=== PATIENT | male | born 1980 | race Caucasian/White ===

== ENCOUNTER 2016-12-17 12:25 | Emergency (ER) | payer OTHER ==
[2016-12-17] MEDS ORDERED: IBUPROFEN 200 MG TAB PO ONE ×2 (12:39→18:07)
[2016-12-17] MEDS ORDERED: HYDROcodone 5MG/APAP 325MG 1 EA TAB PO ONE ×3 (12:49→21:21)
--- NOTE | 2016-12-17 13:03 | RAD ---
Frontal view pelvis. Two-view left hip. Indication: left hip pain and low grade fever, 2 hours Comparison: None. 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 Inferior aspects of the femoral stems not included in their entirety on the pelvis view. No discrete fracture identified. Pelvic ring is intact. Very subtle lucency about the inferior aspects of the left femoral stem. Loosening is difficult to exclude. Comparison with any prior examinations recommended to document stability. Electronically signed by: Rahul Giles MD 12/17/2016 1:02 PM CDT
[2016-12-17] MEDS ORDERED: ACETAMINOPHEN 325 MG TAB PO ONE (14:25)
--- NOTE | 2016-12-17 14:42 | US ---
EXAM DESCRIPTION: Venous,Lower Extremity LT CLINICAL HISTORY: 36 years,Male,left inguinal pain, fever, distant hip replacement COMPARISON: None TECHNIQUE: Multiple duplex Doppler ultrasound images were performed of the left lower extremity deep veins. FINDINGS: The common femoral vein to the calf vessels demonstrates good compression, augmentation, and no thrombus formations. Surrounding soft tissues unremarkable. IMPRESSION: Unremarkable deep veins of the left lower extremity. Electronically signed by: Alex Bell MD 12/17/2016 2:40 PM CDT
[2016-12-17] MEDS ORDERED: LINEZOLID IV 600 MG in PREMIX BAG 1 BAG IVPB ONE (15:01)
[2016-12-17] MEDS ORDERED: ERTAPENEM 1 GM in SODIUM CHL 0.9% 50ML MIN-BAG+ 50 ML IVPB ONE (15:03)
--- NOTE | 2016-12-17 15:11 | ED.PDOC ---
History of Present Illness - General Chief Complaint: Lower Extremity Injury Stated Complaint: left hip pain Time Seen by Provider: 12/17/16 12:33 Source: patient Exam Limitations: no limitations - History of Present Illness Initial Comments: the patient is a 36-year-old male presenting to the emergency room secondary to fairly abrupt onset pain in the left hip with associated fever and body aches. This started about 2-3 hours prior to arrival. The patient had been having normal activity and no injuries. He was not having any pain when he laid down. The pain started after he had been lying down for a little while. The patient took several ibuprofen before coming up here and his temperature upon arrival was 100.5. After a couple of hours and additional Tylenol his temperature was 102.3. Pain is located over the left hip. See no erythema. I feel no definite swelling. There is mild increased warmth over the area. He does not bear weight well. Both active and passive range of motion causes pain. Occurred: just prior to arrival Pain - Lower Extremity: severe: Left Thigh/Hip Method of Injury: other Improving Factors: immobilization Worsening Factors: movement Allergies/Adverse Reactions: Allergies NO KNOWN ALLERGY Allergy (Verified 12/17/16 13:06) Review of Systems - Review of Systems Constitutional: States: chills, diaphoresis, fever, malaise EENTM: States: no symptoms reported Respiratory: States: no symptoms reported Cardiology: States: no symptoms reported Gastrointestinal/Abdominal: States: no symptoms reported Genitourinary: States: no symptoms reported Musculoskeletal: States: see HPI Skin: States: no symptoms reported Neurological: States: no symptoms reported Endocrine: States: excessive sweating All other Systems: No Change from Baseline Past Medical History (General) - Patient Medical History Hx Seizures: No Hx Stroke: No Hx Hypertension: Yes Hx Diabetes: No Surgical History: appendectomy, other Family Medical History - Family History Mother Family History: No Known Physical Exam - Physical Exam General Appearance: Alert, Ill Appearing Eyes, Ears, Nose, Throat: PERRL/EOMI, normal ENT inspection, TMs normal, other - the patient is obviously flushed with fever Neck: non-tender, full range of motion, supple Cardiovascular/Respiratory: regular rate, rhythm, normal peripheral pulses, normal breath sounds, no respiratory distress Gastrointestinal/Abdominal: non-tender Back: normal inspection, no CVA tenderness, no vertebral tenderness Thigh/Hip: limited ROM, pain, soft tissue tenderness - Limited range of motion, other - see history of present illness Leg: normal inspection, non-tender, no evidence of injury Knee: normal inspection, non-tender, no evidence of injury, normal ROM Ankle: normal inspection, non-tender, no evidence of injury, normal ROM Foot: normal inspection, non-tender, no evidence of injury, normal ROM Neuro/Tendon: normal sensation, normal motor functions, normal tendon functions Mental Status: alert Skin: normal color Comments: Vital Signs - 24 hr 12/17/16 12/17/16 12/17/16 12:34 13:01 14:05 Temperature 100.5 F H 102.3 F H Pulse Rate [ 92 H 85 92 H right brachial] Respiratory 20 20 20 Rate Blood Pressure 116/65 118/62 133/63 [right brachial ] O2 Sat by Pulse 97 96 98 Oximetry 12/17/16 14:50 Temperature Pulse Rate [ right brachial] Respiratory 16 Rate Blood Pressure 145/74 [right brachial ] O2 Sat by Pulse Oximetry Progress - Progress Progress: 12/17/16 15:15 the patient is a 36-year-old male presenting to the emergency room secondary to fairly abrupt onset severe left hip pain while at rest with associated fever. The patient does have a prosthetic joint there. The patient has remained significantly febrile even after Tylenol and Motrin. I discussed the patient with his orthopedist Dr. Amilcar Alvarado at [facility]. The patient will be transferred to the emergency room there for further evaluation. There is significant concern here for the patient trying to become septic. 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 It will be avoided for now. He is receiving a dose of Linezolid and ertapenem. it would ideal if we were able to obtain a reliable aspirate before the antibiotics were required, but this does not appear to be possible at this time. 2 separately times sets of blood cultures have been performed here. The patient will be transferred for specialty care with his orthopedist. Aside from the fever, vitals have remained stable. The patient will be made nothing by mouth. 12/17/16 16:29 due to the anticipated significant delay before the patient can be seen by his orthopedist and aspirated there, it was agreed upon to attempt an aspiration of the hip joint here in hopes of obtaining fluid for culture before antibiotics hit their peak. Risks and benefits were explained. Patient did agree to proceed. Ultrasound was used for marking of the hip joint before the procedure was attempted. Patient was in supine position. 1% lidocaine with epinephrine was used 2 cc for localized anesthetic. A lateral approach was used using a 17 -gauge spinal needle. Needle was inserted 1/2 cm proximal to the anterior third of the greater trochanter and advanced horizontally along the plane of the bed until resistance was met and then the needle was slowly withdrawn and redirected slightly cephalad. This was done 3 times. In spite of this, we were unable to obtain fluid for culture. The patient did tolerate the procedure well. There is no obvious bleeding. No blood was withdrawn into the syringe during the process. The patient appears neurovascularly intact after the process. Sterile prep and draped using Betadine was performed. 12/17/16 18:56 there is a significant delay in transferring of the patient. I'm being told that his insurance is refusing to reimburse for his transfer to [facility] indicating that there are closer facilities to care for him. He has been given prices for ambulance services to transfer him as private pay, but he is unwilling to use his oxygen at this time. He is currently waiting on his spouse to get here from approximately 4 hours away to take him to [facility]. Even though this is less than ideal, I do believe he is better off going back to the orthopedic surgeon that operated on the joint in question in the past. he has been following up with that surgeon since the surgery as well. It is his medical home for that malady. I do believe he has a better chance for a better outcome going this route. The patient's fever is breaking. He has had his doses of antibiotics. His pain is fairly well-controlled at this time. He is remaining nothing by mouth with the exception of ice chips. He has had a liter of IV fluids. 12/17/16 21:19 the patient's sister has arrived to transfer him to [facility] for further evaluation and treatment. IV will be left in place in case they need to make a unscheduled stop at a hospital along the way. the patient's vital signs are reassuring. His fever is breaking. transferring for orthopedic evaluation and intervention with his primary orthopedist. - Results/Orders Results/Orders: 12/17/16 12:54 BLOOD CULTURE Stat 12/17/16 14:46 BLOOD CULTURE Stat 12/17/16 15:01 Linezolid IV [Zyvox IV] 600 mg Premix Bag 1 bag IVPB ONCE 12/17/16 15:03 Ertapenem [INVanz] 1 gm Sodium Chl 0.9% 50Ml Min-Bag+ [NS 50ml MINI-BAG+] 50 ml IVPB ONCE Laboratory Results - last 24 hr 12/17/16 12/17/16 12/17/16 12:54 12:54 12:54 WBC 13.0 H RBC 4.75 Hgb 14.8 Hct 43.9 MCV 92.4 MCH 31.2 H MCHC 33.8 RDW 13.1 Plt Count 210 MPV 8.3 Absolute Neuts (auto) 10.60 H Absolute Lymphs (auto) 1.40 Absolute Monos (auto) 0.70 Absolute Eos (auto) 0.20 Absolute Basos (auto) 0.10 Neutrophils % 81.5 H Lymphocytes % 11.0 L Monocytes % 5.6 Eosinophils % 1.3 Basophils % 0.6 ESR 0 PT 12.0 INR 1.060 PTT (SP) 31.5 D-Dimer, Quantitative 355 H* Sodium Potassium Chloride Carbon Dioxide Anion Gap BUN Creatinine BUN/Creatinine Ratio Random Glucose Serum Osmolality Calcium Total Bilirubin AST ALT Alkaline Phosphatase C-Reactive Protein Serum Total Protein Albumin Globulin Albumin/Globulin Ratio Urine Color Urine Appearance Urine pH Ur Specific [place] Urine Protein Urine Glucose (UA) Urine Ketones Urine Blood Urine Nitrite Urine Bilirubin Urine Urobilinogen Ur Leukocyte Esterase Urine RBC Urine WBC Ur Epithelial Cells Urine Bacteria 12/17/16 12/17/16 12:54 14:02 WBC RBC Hgb Hct MCV MCH MCHC RDW Plt Count MPV Absolute Neuts (auto) Absolute Lymphs (auto) Absolute Monos (auto) Absolute Eos (auto) Absolute Basos (auto) Neutrophils % Lymphocytes % Monocytes % Eosinophils % Basophils % ESR PT INR PTT (SP) D-Dimer, Quantitative Sodium 136 Potassium 4.2 Chloride 101 Carbon Dioxide 28 Anion Gap 11.2 L BUN 14 Creatinine 1.07 BUN/Creatinine Ratio 13.1 Random Glucose 119 H Serum Osmolality 273.6 L Calcium 9.1 Total Bilirubin 0.5 AST 24 ALT 34 Alkaline Phosphatase 78 C-Reactive Protein 1.3 H Serum Total Protein 7.6 Albumin 4.2 Globulin 3.4 Albumin/Globulin Ratio 1.2 Urine Color Yellow Urine Appearance Clear Urine pH 7.0 Ur Specific [place] 1.020 Urine Protein Negative Urine Glucose (UA) Negative Urine Ketones Negative Urine Blood Negative Urine Nitrite Negative Urine Bilirubin Negative Urine Urobilinogen 0.2 Ur Leukocyte Esterase Negative Urine RBC 0 Urine WBC 0 Ur Epithelial Cells 0-1 Urine Bacteria 0 Departure - Departure 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
[2016-12-17] MEDS ORDERED: ERTAPENEM 1 GM VIAL ONE (15:21)
[2016-12-17] MEDS ORDERED: SODIUM CHL 0.9% 50ML MIN-BAG+ 50 ML IVPB ONE (15:22)
[2016-12-17] MEDS ORDERED: POVIDONE IODINE 10 % 15 ML UD TOP ONE (16:12)
[2016-12-17] MEDS ORDERED: LIDOCAINE 1% W/ EPINEPHRINE 20 ML VIAL INJ ONE (16:21)
[2016-12-17] MEDS ORDERED: SODIUM CHLORIDE 0.9% 1000ML 1,000 ML IVS ONE (17:13)
[2016-12-17] MEDS ORDERED: KETOROLAC TROMETHAMINE INJ 30 MG/ML VIAL IV ONE (20:18)
[2016-12-17 20:24] VITALS: TEMP 101.4
[2016-12-17 21:22] VITALS: BP 109/64; O2SAT 96
[2016-12-17] MEDS ORDERED: HYDROmorphone HCL INJ 2 MG/ML VIAL IV SCH (21:30)
== END 2016-12-17 21:49 | disposition short-term general hospital (02) ==
LOC: ER 12:25
DX: T84.52XA Infection and inflammatory reaction due to internal left hip prosthesis, initial encounter (principal); I10 Essential (primary) hypertension
CPT/HCPCS: 36415; 72170; 73502; 80053; 81001; 85025; 85379; 85610; 85651; 85730; 86140; 87040; 93971; J1170; J1335; J1885; J2020; J7030; J7050